=== PATIENT | female | born 2000 | race African-American/Black ===

== ENCOUNTER 2023-03-02 19:49 | Emergency (ER) | payer OTHER ==
[~2023-03-02] VITALS: Ht 160 cm; Wt 80.7 kg
[2023-03-02] MEDS ORDERED: DULOXETINE HCL20 MG PO (20:30)
[2023-03-02] MEDS ORDERED: ONDANSETRON ODT8 MG PO (22:34)
[2023-03-02] MEDS ORDERED: CEFDINIR300 MG PO (22:34)
== END 2023-03-02 23:57 | disposition home or self-care (01) ==
LOC: ED 19:49
DX: N12 Tubulo-interstitial nephritis, not specified as acute or chronic (principal); Z79.899 Other long term (current) drug therapy; Z20.822 Contact with and (suspected) exposure to COVID-19
CPT/HCPCS: 36415; 74177; 81001; 83605; 83690; 84703; 85025; 87502; A9270; J0696; J2270; J2405; J7030; J7121; Q9967; U0003